=== PATIENT | female | born 1995 | race Hispanic/Latino ===

== ENCOUNTER 2019-05-02 20:14 | Emergency (ER) | payer SELFPAY ==
[~2019-05-02] VITALS: Ht 162.6 cm; Wt 206.0 kg
[~2019-05-02 20:14] MED LIST: AMOXICILLIN500 MG PO; DOXYCYCL HYC100 MG PO; NO HOME MEDS
[2019-05-02] MEDS ORDERED: IBUPROFEN600 MG PO (21:30)
[2019-05-02] MEDS ORDERED: AMOXICILLIN500 MG PO (21:30)
[2019-05-02 21:35] VITALS: BP 140/64
== END 2019-05-02 21:37 | disposition home or self-care (01) | DRG 544 ==
LOC: ED 20:14
DX: M84.48XA Pathological fracture, other site, initial encounter for fracture (principal); H66.91 Otitis media, unspecified, right ear

== ENCOUNTER 2019-08-08 18:13 | Emergency (ER) | payer SELFPAY ==
[~2019-08-08 18:13] MED LIST changes: +IBUPROFEN600 MG PO
[2019-08-08] MEDS ORDERED: AMOXICILLIN500 M2 PO (18:47)
[2019-08-08 18:53] VITALS: BP 147/92
== END 2019-08-08 18:55 | disposition home or self-care (01) | DRG 159 ==
LOC: ED 18:13
DX: K03.81 Cracked tooth (principal)